=== PATIENT | male | born 2000 | race Caucasian/White ===

== ENCOUNTER 2021-06-26 09:38 | Emergency (ER) | payer OTHER ==
[~2021-06-26] VITALS: Ht 175.3 cm; Wt 128.8 kg
[2021-06-26] MEDS ORDERED: NS 1,000 ML IV ONE (12:40)
[2021-06-26 13:16] LABS: BASO % 0.6 % (0.0-1.0); EOS # 0.3 10^3/uL (0.0-0.5); EOS % 3.9 % (0.0-3.0); HEMATOCRIT 46.5 % (42.0-52.0); HEMOGLOBIN 15.6 g/dl (13.5-17.5); MEAN CORPUSCULAR HEMOGLOBIN 30.5 pg (27.0-33.0); MEAN CORPUSCULAR HGB CONC 33.5 g/dl (32.0-36.5); MEAN CORPUSCULAR VOLUME 90.8 fl (80.0-96.0); MONO # 0.7 10^3/uL (0.0-0.8); MONO % 9.6 % (2.0-8.0); NEUTROPHILS # 4.2 10^3/uL (1.5-8.5); NEUTROPHILS % 58.6 % (36.0-66.0); PLATELET COUNT, AUTOMATED 309 10^3/uL (150-450); RED BLOOD COUNT 5.12 10^6/uL (4.30-6.10); WHITE BLOOD COUNT 7.2 10^3/uL (4.0-10.0)
[2021-06-26] MEDS ORDERED: ISOVUE-370 76% 100ML VIAL As Ordered ONE (13:23)
[2021-06-26 13:44] LABS: ALBUMIN 4.6 GM/DL (3.2-5.2); ALT/SGPT 91 U/L (12-78); BILIRUBIN,DIRECT 0.2 MG/DL (0.0-0.2); BILIRUBIN,TOTAL 0.5 MG/DL (0.2-1.0); LIPASE 99 U/L (73-393)
--- NOTE | 2021-06-26 13:48 | REP ---
INDICATION: ruq pain. COMPARISON: None. TECHNIQUE: Multiple ultrasonographic images of the abdominal right upper quadrant. FINDINGS: There is no cholelithiasis, gallbladder wall thickening or pericholecystic fluid. There is no intrahepatic or extrahepatic biliary duct dilatation. The common duct measures 4.4 mm in diameter. The liver is enlarged measuring 21.3 cm craniocaudad in the midclavicular line. The hepatic parenchyma is hyperechoic compatible with hepato steatosis. There are no focal hepatic masses. The pancreas is obscured by bowel gas. The right kidney is normal size measuring 11.9 x 6.3 x 4.6 cm. There is no right renal calculus, hydronephrosis, cystic mass or solid mass. There is no right upper quadrant abdominal free fluid. IMPRESSION: The gallbladder is unremarkable. There is no biliary duct dilatation. Hepatomegaly. Hepato steatosis. No hepatic masses. The pancreas is obscured by bowel gas. The right kidney is unremarkable. There is no free fluid in the right upper quadrant. <Electronically signed by Fran Acosta > 06/26/21 [id number]
--- NOTE | 2021-06-26 14:51 | REP ---
INDICATION: RUQ pain and generalized abd/rectal bleeding. COMPARISON: Right upper quadrant abdominal ultrasound earlier today. TECHNIQUE: Abdomen/pelvis CT with IV contrast, without bowel contrast. FINDINGS: The visualized lung henson are unremarkable except for respiratory motion artifact. The hepatic parenchyma is homogeneous. There is beam hardening artifact arising from the rib secondary to respiratory motion. The gallbladder, pancreas and spleen are unremarkable. The adrenals are unremarkable. The kidneys are unremarkable. The abdominal aorta is unremarkable. There is no periaortic adenopathy or mass. There is no bowel distention or obstruction. There is no ascites. The mesentery is unremarkable except for beam hardening artifact likely secondary to respiratory motion. There is focal wall thickening of the distal descending colon, nonspecific, peristalsis artifact versus inflammatory versus infectious colitis. The colon is otherwise unremarkable. Pelvis: There is no ascites or adenopathy. The bladder is unremarkable. The appendix is unremarkable. There are no lytic, blastic or destructive skeletal changes. IMPRESSION: Focal wall thickening in the distal descending colon, nonspecific, peristalsis artifact versus infectious or inflammatory colitis. No ascites, adenopathy or mass. There is no pneumoperitoneum. No bowel distention or obstruction. <Electronically signed by Fran Acosta > 06/26/21 [id number]
[2021-06-26 15:22] VITALS: BP 139/104
[2021-06-26 15:41] LABS: HEPATITIS B SURFACE ANTIGEN NEGATIVE (NEGATIVE)
[2021-06-26 16:10] LABS: HEPATITIS B CORE ANTIBODY IGM NEGATIVE (NEGATIVE); HEPATITIS C VIRUS ABY INDEX 0.1 INDEX (<0.8)
[2021-06-26 16:11] LABS: HEPATITIS A ANTIBODY IGM NEGATIVE (NEGATIVE)
--- NOTE | 2021-06-28 13:32 | ED PDOC ---
Post-Departure Follow-Up radiology repor tfaxed to [facility] Zoya Johnson MD Jun 28, 2021 13:32
== END 2021-06-26 15:33 | disposition home or self-care (01) ==
LOC: M ED 09:38
DX: K76.0 Fatty (change of) liver, not elsewhere classified (principal); R16.0 Hepatomegaly, not elsewhere classified
CPT/HCPCS: 36415; 74177; 76705; 80047; 80076; 83690; 85025; 86705; 86709; 86803; 87340; 96360; 96361; 99284; Q9967

== ENCOUNTER → 2021-09-10 | Outpatient (CLI) | payer OTHER ==
[2021-09-10 10:40] LABS: INR 1.01; PROTHROMBIN TIME 13.7 SECONDS (12.7-14.5)
[2021-09-10 10:59] LABS: ALBUMIN 4.3 GM/DL (3.2-5.2); BILIRUBIN,DIRECT 0.1 MG/DL (0.0-0.2); BILIRUBIN,TOTAL 0.5 MG/DL (0.2-1.0); PERCENT SATURATION 20.6 % (19.7-50.0); TOTAL PROTEIN 7.6 GM/DL (6.4-8.2)
[2021-09-12 16:08] LABS: ANCA-ATYPICAL <1:20 titer (Neg:<1:20); ANTI-MITOCHONDRIAL ANTIBODY <20.0 Units (0.0-20.0); ANTINUCLEAR ANTIBODIES DIRECT Negative (Negative); CERULOPLASMIN 19.6 mg/dL (16.0-31.0); CYTOPLASMIC NEUTROP AB ANCA-C <1:20 titer (Neg:<1:20); LIVER-KIDNEY MICROSOMAL ABY <20.1 Units (0.0-20.0); PERINUCLEAR AB ANCA-P <1:20 titer (Neg:<1:20); TISSUE TRANSGLUTAMINASE IgA <2 U/mL (0-3)
== END ==
LOC: M LAB 09:46
PROVIDERS: ATTEND Internal Medicine Gastroenterology
DX: R94.5 Abnormal results of liver function studies (principal)

== ENCOUNTER 2021-10-23 08:26 | Emergency (ER) | payer OTHER ==
[~2021-10-23] VITALS: Ht 177.8 cm; Wt 128.6 kg
[~2021-10-23 08:26] MED LIST: ACID10TA14 PO
[2021-10-23 13:14] LABS: HEMATOCRIT 46.1 % (42.0-52.0); HEMOGLOBIN 15.5 g/dl (13.5-17.5); MEAN CORPUSCULAR HEMOGLOBIN 30.3 pg (27.0-33.0); MEAN CORPUSCULAR HGB CONC 33.6 g/dl (32.0-36.5); PLATELET COUNT, AUTOMATED 353 10^3/uL (150-450); RED BLOOD COUNT 5.12 10^6/uL (4.30-6.10); WHITE BLOOD COUNT 8.2 10^3/uL (4.0-10.0)
[2021-10-23 13:48] LABS: ALBUMIN 4.3 GM/DL (3.2-5.2); ALT/SGPT 83 U/L (12-78); BILIRUBIN,DIRECT 0.2 MG/DL (0.0-0.2); BILIRUBIN,TOTAL 0.8 MG/DL (0.2-1.0); BLOOD UREA NITROGEN 15 MG/DL (7-18); CALCIUM LEVEL 9.5 MG/DL (8.5-10.1); CARBON DIOXIDE LEVEL 28 MEQ/L (21-32); CHLORIDE LEVEL 104 MEQ/L (98-107); GLOMERULAR FILTRATION RATE > 60.0 (>60); GLUCOSE, FASTING 93 MG/DL (70-100); LIPASE 76 U/L (73-393); POTASSIUM SERUM 4.3 MEQ/L (3.5-5.1); SODIUM LEVEL 137 MEQ/L (136-145); TOTAL PROTEIN 7.7 GM/DL (6.4-8.2)
[2021-10-23] MEDS ORDERED: ONDANSETRON 4 MG ORAL DISINTEGRATING TAB PO ONE (18:05)
[2021-10-23] MEDS ORDERED: PROMETHAZINE INJ 25 MG/ML VIAL (J2550) IV ONE (19:45)
[2021-10-23] MEDS ORDERED: NS 1,000 ML IV ONE (19:45)
[2021-10-23 21:45] VITALS: BP 128/88
== END 2021-10-23 22:32 | disposition home or self-care (01) ==
LOC: M ED 08:26
DX: F41.9 Anxiety disorder, unspecified (principal); G89.29 Other chronic pain; R10.9 Unspecified abdominal pain; R11.10 Vomiting, unspecified; R19.7 Diarrhea, unspecified; Z77.098 Contact with and (suspected) exposure to other hazardous, chiefly nonmedicinal, chemicals
CPT/HCPCS: 80048; 80076; 81001; 83690; 85027; 87505; 96361; 96374; 99284; Q0162

== ENCOUNTER → 2021-11-18 | Outpatient (CLI) | payer OTHER ==
[~2021-11-18] MED LIST changes: +COLA100C5 PO
== END ==
LOC: M LABSMTC 09:55
PROVIDERS: ATTEND Anesthesiology
DX: Z20.822 Contact with and (suspected) exposure to COVID-19 (principal)

== ENCOUNTER 2021-11-22 10:14 | Day surgery (SDC) | payer OTHER ==
[~2021-11-22] VITALS: Ht 177.8 cm; Wt 127.0 kg
[~2021-11-22 10:14] MED LIST changes: +LIDOCAINE 2% 100MG/5ML SDV (FOR ANES.) As Ordered ONE; +NS 1,000 ML IV ONE; +propofoL 200 MG/20 ML VIAL As Ordered ONE
[2021-11-22] MEDS ORDERED: propofoL 200 MG/20 ML VIAL As Ordered ONE (13:31)
[2021-11-22 13:42] VITALS: BP 123/78
== END 2021-11-22 14:16 | disposition home or self-care (01) ==
LOC: M OPP 10:14
PROVIDERS: ATTEND Internal Medicine Gastroenterology
DX: R10.84 Generalized abdominal pain (principal); R93.3 Abnormal findings on diagnostic imaging of other parts of digestive tract; R10.11 Right upper quadrant pain; R11.2 Nausea with vomiting, unspecified; F17.290 Nicotine dependence, other tobacco product, uncomplicated